=== PATIENT | female | born 1960 | race Caucasian/White ===

== ENCOUNTER 2017-10-02 12:15 | Day surgery (SDC) | payer OTHER ==
[~2017-10-02] VITALS: Ht 170.2 cm; Wt 90.0 kg
[~2017-10-02 12:15] MED LIST: ASPI81TA27 PO; DILT60TA27 PO; FLUT250M2 INH; LEV063IS NEB; LISI-646 PO; METO25TA3 PO; OMEP20TA PO; RANI-226 PO
[2017-10-02] MEDS ORDERED: fentaNYL CITRATE 100 MCG/2 ML VL ONE (13:37)
[2017-10-02] MEDS ORDERED: MIDAZOLAM HCL 1MG/1ML-2 ML VIAL ONE (13:37)
[2017-10-02] MEDS ORDERED: LIDOCAINE 2%HCL (LOCAL ANESTH.) INJ 20ML MDV ONE (13:51)
[2017-10-02] MEDS ORDERED: diphenhdrAMINE HCL 50 MG/1 ML VL ONE (14:11)
[2017-10-02] MEDS ORDERED: methylPREDNISolone SOD SUCC 125 MG/2 ML VL ONE (14:11)
[2017-10-02] MEDS ORDERED: FAMOTIDINE (10MG/ML) 2ML VL IV ONE (14:12)
[2017-11-02] MEDS ORDERED: ATOR20TA50 PO (13:06)
[2017-11-02] MEDS ORDERED: FEXO-38 PO (13:06)
[2017-11-02] MEDS ORDERED: VALA500T33 PO (13:06)
== END 2017-10-02 17:15 | disposition home or self-care (01) ==
LOC: CATH 12:15
PROVIDERS: ATTEND Specialist
DX: R55 Syncope and collapse (principal); R00.2 Palpitations; E66.9 Obesity, unspecified; J45.909 Unspecified asthma, uncomplicated; I10 Essential (primary) hypertension; Z68.31 Body mass index [BMI] 31.0-31.9, adult; Z91.02 Food additives allergy status; Z91.010 Allergy to peanuts
CPT/HCPCS: 93005; 93620; C1730; C1894; J1200; J1644; J2250; J2930; J3010; J3490; J7030; 99152; 99153